=== PATIENT | female | born 1980 | race Caucasian/White ===

== ENCOUNTER 2023-07-24 14:54 | Emergency (ER) | payer OTHER ==
[2023-07-24 16:24] LABS: Sqamous Epithelial 20-50 /HPF (None Seen); Urine Bacteria <20 /HPF (<20); Urine Culture Reflex Order NOT NEEDED; Urine Mucus 4+ /HPF (None Seen); Urine RBC >50 /HPF (None Seen); Urine WBC >50 /HPF (<5)
[2023-07-24 16:42] LABS: Specific Gravity 1.018 (1.005-1.030); Urine Bilirubin NEGATIVE (Negative); Urine Blood 3+ (OVER) (Negative); Urine Clarity Extremely Turbid (Clear); Urine Color Dark-Brown (Yellow); Urine Glucose NEGATIVE (Negative); Urine Ketones TRACE (Negative); Urine Microscopic Reflex YN NO UMIC; Urine Nitrite NEGATIVE (Negative); Urine Protein 1+ (Negative); Urine Urobilinogen 3+ (Normal)
--- NOTE | 2023-07-24 16:52 | EDPHYS ---
Physician Documentation [facility] Name: Karina Caruso Age: 42 yrs Sex: Female : 1980 Arrival Date: 07/24/2023 Time: 14:54 Bed 8 Private MD: Hector Murillo ED Physician Nasir Webster HPI: 07/23 14:56 This 42 yrs old Female presents to ER via Wheelchair with complaints of Post Surgical 7 Problem, spotting when urinating. 14:56 42-year-old female presents to the ER for multiple issues. She reports that she had a jh7 ventral hernia repair and is following up with her surgeon on Tuesday. She has a Bob-Myers drain in place and felt like the suture may have come loose. She also reports slight dysuria and spotting blood after urinating starting today. Denies fever, retention, abdominal pain, back pain, or any other symptoms at this time.. 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 - Infectious Disease History:: Denies. - Social history:: Smoking status: Patient/guardian denies using tobacco. ROS: 14:56 Constitutional: Per HPI jh7 Exam: 14:56 Constitutional: This is a well developed, well nourished patient who is awake, alert, jh7 and in no acute distress. Neck: Trachea midline, no thyromegaly or masses palpated, and no cervical lymphadenopathy. Supple, full range of motion without nuchal rigidity, or vertebral point tenderness. No Meningismus. Cardiovascular: Regular rate and rhythm with a normal S1 and S2. No gallops, murmurs, or rubs. Normal PMI, no JVD. No pulse deficits. Respiratory: Lungs have equal breath sounds bilaterally, clear to auscultation and percussion. No rales, rhonchi or wheezes noted. No increased work of breathing, no retractions or nasal flaring. Abdomen/GI: Soft, non-tender, with normal bowel sounds. No distension or tympany. No guarding or rebound. No evidence of tenderness throughout. MS/ Extremity: Pulses equal, no cyanosis. Neurovascular intact. Full, normal range of motion. Neuro: Awake and alert, GCS 15, oriented to person, place, time, and situation. Motor strength 5/5 in all extremities. Sensory grossly intact. Normal gait. 14:56 : CVA tenderness, is absent, 14:56 Skin: Bob-Myers drain in place with serosanguineous drainage in the tube. Suture appears in place with no signs or symptoms of infection noted on the skin.. Vital Signs: 15:19 BP 132 / 83; Pulse 96; Resp 17; Temp 97; Pulse Ox 97% ; Weight 112.04 kg; Height 5 ft. ll1 9 in. ; Pain 4/10; 16:59 BP 131 / 81; Pulse 91; Resp 16; Temp 97.2; Pulse Ox 97% ; ll1 15:19 Body Mass Index 36.48 (112.04 kg, 175.26 cm) ll1 15:19 Pain Scale: Adult ll1 MDM: 15:23 Patient medically screened. [facility] 16:52 Differential diagnosis: UTI, Pyelonephritis, nephrolithiasis, surgical complication. jh7 Data reviewed: vital signs, nurses notes, lab test result(s). Historians other than the Patient: Spouse/Significant Other: . Counseling: I had a detailed discussion with the patient and/or guardian regarding the historical points, exam findings, and any diagnostic results supporting the discharge/admit diagnosis, the need for outpatient follow up, a general surgeon, Tuesday as scheduled, to return to the emergency department if symptoms worsen or persist or if there are any questions or concerns that arise at home. 07/23 15:27 Order name: Urinalysis w/ reflexes; Complete Time: 16:50 jh7 Administered Medications: No medications were administered Disposition: 19:34 Co-signature as Attending Physician, Nasir Webster MD I reviewed the patient's care rt provided by the Advanced Practice Provider and agree with the diagnosis and treatment plan. Disposition Summary: 07/24/23 16:51 Discharge Ordered Notes: Location: Home [facility] Problem: new [facility] Symptoms: are unchanged [facility] Condition: Stable [facility] Diagnosis - UTI/ Urinary tract infection, site not specified [facility] Followup: [facility] - With: Hector Murillo MD - When: 2 - 3 days - Reason: Recheck today's complaints Discharge Instructions: - Discharge Summary Sheet [facility] - Urinary Tract Infection, Adult [facility] Forms: - Medication Reconciliation Form [facility] - Thank You Letter [facility] - Antibiotic Education [facility] - Patient Portal Instructions [facility] - Leadership Thank You Letter [facility] Prescriptions: - cefdinir 300 mg Oral capsule - take 1 capsule ORAL route 2 times per day for 7 days; 14 capsule; Refills: 0, [facility] Product Selection Permitted Signatures: Dispatcher [employer] EDMarleny Nix, RN RN Paolo Fermin RN RN [facility] Holly Kapadia, AD TERMINAL MAKEUP OPERATOR AD TERMINAL MAKEUP OPERATOR [facility] Nasir Webster MD MD rt Corrections: (The following items were deleted from the chart) 15:19 14:56 Allergies: No Known Allergies; [facility] 15:28 15:28 Urinalysis+U.LAB.BRZ ordered. EDNH EDNH
--- NOTE | 2023-07-24 16:52 | ER ---
Nurse's Notes [facility] Name: Karina Caruso Age: 42 yrs Sex: Female : 1980 Arrival Date: 07/24/2023 Time: 14:54 Bed 8 Private MD: Hector Murillo Diagnosis: UTI/ Urinary tract infection, site not specified Presentation: 07/23 15:19 Coronavirus screen: Client denies travel out of the [place] in the last 14 days. At this ll1 time, the client does not indicate any symptoms associated with coronavirus-19. Ebola Screen: Patient denies travel to an Ebola-affected area in the 21 days before illness onset. Initial Sepsis Screen: Does the patient meet any 2 criteria? No. Patient's initial sepsis screen is negative. Does the patient have a suspected source of infection? No. Patient's initial sepsis screen is negative. Risk Assessment: Do you want to hurt yourself or someone else? Patient reports no desire to harm self or others. Onset of symptoms was July 23, 2023. 15:19 Method Of Arrival: Wheelchair ll1 15:19 Acuity: VALDEZ 3 ll1 15:20 Chief complaint: Patient states: Noticed spotting with urination yesterday. Hernia ll1 repair 07/18. Stitch came out of tube drain site today. Triage Assessment: 15:19 General: Appears in no apparent distress. Behavior is calm, cooperative, appropriate ll1 for age. Pain: Complains of pain in abdomen. : Reports spotting with urination Denies burning with urination. Derm: Reports surgical stitch came off at drain entrance site. 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 - Infectious Disease History:: Denies. - Social history:: Smoking status: Patient/guardian denies using tobacco. Screenin:59 [facility] ED Fall Risk Assessment (Adult) History of falling in the last 3 months, ll1 including since admission No falls in past 3 months (0 pts) Confusion or Disorientation No (0 pts) Intoxicated or Sedated No (0 pts) Impaired Gait No (0 pts) Mobility Assist Device Used No (0 pt) Altered Elimination No (0 pt) Score/Fall Risk Level 0 - 2 = Low Risk Maintained a safe environment, Hourly rounding (assess needs \T\ fall precautionary measures) done. Abuse screen: Denies threats or abuse. Nutritional screening: No deficits noted. Tuberculosis screening: No symptoms or risk factors identified. Assessment: 16:01 Reassessment: No changes from previously documented assessment. Patient and/or family ll1 updated on plan of care and expected duration. Pain level reassessed. Patient is alert, oriented x 3, equal unlabored respirations, skin warm/dry/pink. 16:59 Reassessment: No changes from previously documented assessment. Patient and/or family ll1 updated on plan of care and expected duration. Pain level reassessed. Patient is alert, oriented x 3, equal unlabored respirations, skin warm/dry/pink. Vital Signs: 15:19 BP 132 / 83; Pulse 96; Resp 17; Temp 97; Pulse Ox 97% ; Weight 112.04 kg; Height 5 ft. ll1 9 in. ; Pain 4/10; 16:59 BP 131 / 81; Pulse 91; Resp 16; Temp 97.2; Pulse Ox 97% ; ll1 15:19 Body Mass Index 36.48 (112.04 kg, 175.26 cm) ll1 15:19 Pain Scale: Adult ll1 ED Course: 14:55 Patient arrived in ED. rg4 14:56 Hector Murillo MD is Private Physician. rg4 14:56 Arm band placed on. ph 15:20 Triage completed. ll1 15:23 Holly Kapadia FNP [facility] jh7 15:23 Nasir Webster MD is Attending Physician. jh7 16:01 Urinalysis w/ reflexes Sent. ll1 16:21 Lacho Cote, AIMEE is Primary Nurse. bp 16:21 Urinalysis w/ reflexes Sent. bp 16:51 Hector Murillo MD is Referral Physician. jh7 17:00 Patient has correct armband on for positive identification. Provided Education on: n/a. ll1 17:00 No provider procedures requiring assistance completed. Patient did not have IV access ll1 during this emergency room visit. Administered Medications: No medications were administered Medication: 17:00 VIS not applicable for this client. 1 Outcome: 16:51 Discharge ordered by . [email or web address] 17:00 Discharged to home ambulatory, 1 17:00 Condition: stable 17:00 Discharge instructions given to patient, family, Instructed on discharge instructions, follow up and referral plans. medication usage, Demonstrated understanding of instructions, follow-up care, medications, Prescriptions given X 1, 17:00 Patient left the ED. 1 Signatures: Marleny Gale RN RN Michelle Nielson 4 Lacho Cote RN RN Paolo Rodriguez RN RN 1 Holly Kapadia, SHIPPING & RECEIVING LEAD SHIPPING & RECEIVING LEAD 7 Corrections: (The following items were deleted from the chart) 15:19 14:56 Allergies: No Known Allergies; [facility]
[2023-07-24 17:19] VITALS: BP 131/81; TEMP 97.2; O2SAT 97
== END 2023-07-24 17:00 | disposition home or self-care (01) ==
LOC: ER 14:54
DX: N39.0 Urinary tract infection, site not specified (principal); Z98.890 Other specified postprocedural states; Z88.7 Allergy status to serum and vaccine
CPT/HCPCS: 81003; 99283